=== PATIENT | male | born 1980 | race Caucasian/White ===

== ENCOUNTER 2019-08-26 15:41 | Emergency (ER) | payer MEDICAID ==
[~2019-08-26] VITALS: Ht 190.5 cm; Wt 106.8 kg
[~2019-08-26 15:41] MED LIST: NO HOME MEDS
[2019-08-26 16:15] VITALS: BP 135/88
[2019-08-26] MEDS ORDERED: HYDR-3965 PO (16:48)
[2019-08-26] MEDS ORDERED: ketorolac tromethamine 15mg/ml inj. IM ONE (16:50)
== END 2019-08-26 17:03 | disposition home or self-care (01) ==
LOC: ER 15:42
DX: S60.031A Contusion of right middle finger without damage to nail, initial encounter (principal); S60.041A Contusion of right ring finger without damage to nail, initial encounter; Z98.890 Other specified postprocedural states; Z79.899 Other long term (current) drug therapy; W22.01XA Walked into wall, initial encounter; Y93.89 Activity, other specified; Y92.89 Other specified places as the place of occurrence of the external cause; Y99.8 Other external cause status
CPT/HCPCS: 29125; 73130; 96372; 99283; J1885

== ENCOUNTER 2019-09-26 16:30 | Emergency (ER) | payer MEDICAID ==
[~2019-09-26] VITALS: Ht 190.5 cm; Wt 110.0 kg
[2019-09-26] MEDS ORDERED: HYDR-4383 PO (17:18)
[2019-09-26] MEDS ORDERED: ONDA4TAB6 PO (17:18)
[2019-09-26] MEDS ORDERED: HYDROcodone/acetaminophen 5mg/325mg tablet PO ONE (17:20)
[2019-09-26] MEDS ORDERED: ondansetron 4mg rapidly disintigrating tab PO ONE (17:20)
[2019-09-26 17:30] VITALS: BP 141/86
== END 2019-09-26 17:35 | disposition home or self-care (01) ==
LOC: ER 16:31
DX: S93.401A Sprain of unspecified ligament of right ankle, initial encounter (principal); Z98.890 Other specified postprocedural states; Z79.899 Other long term (current) drug therapy; X50.1XXA Overexertion from prolonged static or awkward postures, initial encounter; Y93.89 Activity, other specified; Y92.89 Other specified places as the place of occurrence of the external cause; Y99.8 Other external cause status
CPT/HCPCS: 73610; 99283

== ENCOUNTER 2020-01-22 13:24 | Emergency (ER) | payer MEDICAID ==
[~2020-01-22] VITALS: Ht 190.5 cm; Wt 91.2 kg
[~2020-01-22 13:24] MED LIST changes: +HYDR-4383 PO; +ONDA4TAB6 PO
[2020-01-22 13:37] VITALS: BP 140/98
--- NOTE | 2020-01-22 14:05 | NUR ---
PT IS 39 YO MALE C/O RT WRIST PAIN X 1 MONTH, SAID HE HAD BEEN DOING ALOT OF YARD WORK, PAIN INCREASED AFTER TRIPPING AND FALLING ON RT WRIST, DECREASED ROM DUE TO PAIN, +CMS TO FINGERS, SWELLING, WAITING TO BE EVALUATED BY PROVIDER
--- NOTE | 2020-01-22 14:07 | NUR ---
PT SELF TREATING AT HOME WITH ICE, OTC MEDICATIONS AND A SLING
[2020-01-22] MEDS ORDERED: HYDROcodone/acetaminophen 5mg/325mg tablet PO ONE (14:55)
== END 2020-01-22 15:09 | disposition home or self-care (01) ==
LOC: ER 13:25
DX: M25.531 Pain in right wrist (principal); Z98.890 Other specified postprocedural states; Z79.899 Other long term (current) drug therapy; W01.0XXA Fall on same level from slipping, tripping and stumbling without subsequent striking against object, initial encounter; Y93.89 Activity, other specified; Y92.89 Other specified places as the place of occurrence of the external cause; Y99.8 Other external cause status
CPT/HCPCS: 29125; 73110; 99284